=== PATIENT | male | born 1980 | race Caucasian/White ===

== ENCOUNTER 2018-09-21 07:15 | Emergency (ER) | payer BC, OTHER ==
[2018-09-21 07:24] VITALS: BP 122/86; PULSE 83; TEMP 97.9; BMI 25.8
--- NOTE | 2018-09-21 07:35 | PDOC ---
History of Present Illness - General Chief Complaint: Injury Stated Complaint: INJURY TO RIGHT ELBOW/SHOULDER AT WORK Time Seen by Provider: 09/21/18 07:18 History Source: Patient Exam Limitations: No Limitations - History of Present Illness Initial Comments: 09/21/18 07:27 Healthy 37-year-old male presents with right shoulder strain sustained yesterday. Patient is a sanitation worker hosing machinery, was lifting heavy garbage and felt a strain in his anterior right shoulder. There was no direct injury, continued working but developed increasing discomfort which peaked this morning, so he presents for evaluation. The pain is localized, sharp, worse with abduction of the right shoulder, not associated with any motor or sensory deficit. Did not take anything for pain, presents for evaluation. No history of injury or surgery to the shoulder, no neck pain or chest pain. Past History - Past Medical History Allergies/Adverse Reactions: Allergies Allergy/AdvReac Type Severity Reaction Status Date / Time No Known Allergies Allergy Verified 09/21/18 07:16 Home Medications: Ambulatory Orders levETIRAcetam [Keppra -] 1,000 mg PO BID 09/21/18 COPD: No Seizures: Yes - Suicide/Smoking/Psychosocial Hx Smoking History: Former smoker Have you smoked in the past 12 months: Yes Number of Cigarettes Smoked Daily: 15 If you are a former smoker, when did you quit?: 2 MONTHS Information on smoking cessation initiated: Yes 'Breaking Loose' booklet given: 10/08/13 Hx Alcohol Use: Yes (OCCAS.) Drug/Substance Use Hx: No Substance Use Type: None Review of Systems - Review of Systems Constitutional: No: Chills, Fever Respiratory: No: Cough, Shortness of Breath Cardiac (ROS): No: Chest Pain, Palpitations ABD/GI: No: Nausea, Vomiting Musculoskeletal: Yes: See HPI, Joint Pain (also with chronic, intermittent R elbow discomfort) Neurological: Yes: Other (h/o brain tumor resection, no chemo/radiation) *Physical Exam - Vital Signs Last Vital Signs Temp Pulse Resp BP Pulse Ox 97.9 F 83 15 122/86 99 09/21/18 07:19 09/21/18 07:19 09/21/18 07:19 09/21/18 07:19 09/21/18 07:19 - Physical Exam Comments: 09/21/18 07:30 Vital signs normal GENERAL: The patient is awake, alert, and fully oriented, in no acute distress. HEAD: Normal with no signs of trauma. EYES: Pupils equal, round and reactive to light, extraocular movements intact, sclera anicteric, conjunctiva clear. EXTREMITIES: Normal range of motion, no edema. No swelling/bruising/deformity. Reproducible discomfort to palpation along anterior deltoid/pec minor and with abduction against resistance, otherwise full flexion/extension/abduction/ adduction/rotation. no focal elbow ttp or swelling, nvi distally with full hand strength. NEUROLOGICAL: Normal speech, normal gait. PSYCH: Normal mood, normal affect. SKIN: Warm, Dry, normal turgor, no rashes or lesions noted. Scalp incision scar. Medical Decision Making - Medical Decision Making 09/21/18 07:35 37y/o M atraumatic shoulder strain at work yesterday, nvi without evidence of fracture/dislocation. likely muscle/tendon strain. nsaids no indication for emergent imaging or immobilization rest/ice, ortho f/u as needed agrees with plan and understands return criteria *DC/Admit/Observation/Transfer Diagnosis at time of Disposition: Right shoulder strain Qualifiers: Encounter type: initial encounter Qualified Code(s): S46.911A - Strain of unspecified muscle, fascia and tendon at shoulder and upper arm level, right arm , initial encounter - Discharge Dispostion Disposition: HOME Condition at time of disposition: Stable - Referrals Referrals: Kishore Barnes MD [Staff Physician] - - Patient Instructions Printed Discharge Instructions: DI for Shoulder Sprain Additional Instructions: Activity as tolerated. Avoid heavy lifting and complete immobilization for 2-3 days. Stay hydrated. Naproxen 400 mg twice daily for 3 days, then as needed for pain. Ice the affected areas for 20 minutes every 3-4 hours for the next 24 hours to reduce swelling. Continue your medications as previously prescribed by your physician. You should follow up with an orthopedic as needed regarding today's emergency department visit. If symptoms persist or worsen beyond 7-10 days, further imaging with MRI may be needed to evaluate the extent of injury. Return to the emergency department for any new or concerning symptoms, particularly persistent or worsening pain, severe swelling or discoloration, numbness or weakness. - Post Discharge Activity Forms/Work/School Notes: Back to Work
== END 2018-09-21 07:41 | disposition home or self-care (01) ==
LOC: FER 07:15
DX: S46.911A Strain of unspecified muscle, fascia and tendon at shoulder and upper arm level, right arm, initial encounter (principal); X58.XXXA Exposure to other specified factors, initial encounter; Y93.89 Activity, other specified; Y92.89 Other specified places as the place of occurrence of the external cause; Y99.0 Civilian activity done for income or pay; Z87.891 Personal history of nicotine dependence; R56.9 Unspecified convulsions
CPT/HCPCS: 99281-25